=== PATIENT | male | born 1970 | race Caucasian/White ===

== ENCOUNTER 2020-03-07 10:16 | Emergency (ER) | payer OTHER ==
[~2020-03-07] VITALS: Ht 175.3 cm; Wt 92.5 kg
[2020-03-07 10:32] VITALS: Ht 175.3 cm; Wt 92.5 kg
[2020-03-07 11:54] VITALS: BP 134/72
== END 2020-03-07 11:54 | disposition home or self-care (01) ==
LOC: ED 10:16
DX: M54.42 Lumbago with sciatica, left side (principal); I10 Essential (primary) hypertension; Z88.0 Allergy status to penicillin; Z88.5 Allergy status to narcotic agent
CPT/HCPCS: J1885